=== PATIENT | female | born 1980 | race Asian ===

== ENCOUNTER 2017-12-06 11:54 | Inpatient (IN) | payer MEDICAID, OTHER, SELFPAY ==
[2017-12-06 21:35] VITALS: BMI 27.7
[2017-12-06] MEDS ORDERED: NS / Oxytocin 40 units/1000ml 1,000 ML IV PRN (22:11)
[2017-12-06] MEDS ORDERED: Lidocaine 1% (PF) 30 ML VIAL SC PRN (22:11)
[2017-12-06] MEDS ORDERED: Promethazine HCl 25 MG/ML VIAL IM PRN (22:11)
[2017-12-06] MEDS ORDERED: Ondansetron HCl/PF 4 MG/2 ML Vial IVP PRN (22:11)
[2017-12-06] MEDS ORDERED: Carboprost 250 MCG/ML AMP IM PRN (22:11)
[2017-12-06] MEDS ORDERED: Misoprostol 200 MCG TAB PR PRN (22:11)
[2017-12-06] MEDS ORDERED: Methylergonovine 0.2 MG/ML VIAL IM PRN (22:11)
[2017-12-06] MEDS ORDERED: Ibuprofen 800 MG TAB PO PRN (22:11)
[2017-12-06] MEDS ORDERED: Acetaminophen 500 MG TAB PO PRN (22:11)
[2017-12-06] MEDS ORDERED: NS w/ Oxytocin 10 units 500 ML IV SCH (22:15)
[2017-12-06 22:25] LABS: Hemoglobin 12.5 g/dL (12.0-16.0); Mean Corpuscular Hemoglobin 26.3 pg (27.0-31.0); Mean Corpuscular Volume 77.4 fL (78.0-98.0); Mean Platelet Volume 8.4 fL (7.4-10.4); Platelet Count 227 thou/uL (130-400); RBC Distribution Width 15.4 % (11.5-14.5); Red Blood Cell (RBC) Count 4.77 mill/uL (4.20-5.40)
--- NOTE | 2017-12-06 22:36 | PDOC.LDHP ---
Labor and Delivery H&P Chief complaint: contractions, scheduled induction HPI: Pt is a Female presenting for induction at 41 weeks. She is reporting some feelings of contractions. + movement at this time. Denies any discharge/LOF, chest pain, headaches or changes in vision. Current gestational age (weeks): 41 Due date: 11/29/17 Grav: 5 Para: 1 OB History Details: SABx3 DCx1 Current complications: other (anemia, AMA) Abnormal US findings: No Past Medical History: none Current medications: pre-tmaica vitamins, iron Previous surgical history: none Allergies/Adverse Reactions: Allergies Allergy/AdvReac Type Severity Reaction Status Date / Time No Known Allergies Allergy Verified 12/06/17 21:37 Social history: none - Physical Exam Vital signs reviewed and normal: yes General: NAD Heart: RRR Lungs: CTAB Abdomen: gravid Extremeties: no edema FHT: variability present (baseline 150, accelerationsx1, no decels) [place] contractions every: 10 mins - Vaginal Exam cm dilated: 0 (Cl/Th/Hi) - OB Labs Blood type: O RH: positive Antibody Screen: negative HIV: negative RPR: negative HEPSAg: negative GBS: negative Urine drug screen: not done Rubella: immune - Assessment Induction of labor post term - Plan Plan: admit to L&D (cervix is currently unfavorable for pitocin. Will administer cytotec 25 mcg. Continue to monitor, will begin pitocin when cervix becomes favorable. clear liquid diet.), cervical ripening, labor augmentation if indicated
[2017-12-06] MEDS: Misoprostol 100 MCG TAB VAG SCH (22:54)
[2017-12-06] MEDS: Lactated Ringer's 1,000 ML IV SCH (22:54)
[2017-12-06 23:06] LABS: HBSAg Index 0.15 S/CO (0-0.99); Hep B Surf Ag Non-Reactive S/CO (NonReactive); Syphilis Antibody Nonreactive (Nonreactive); Syphilis Antibody Index 0.06 S/CO (<1.00 Non-Reactive)
[2017-12-07] MEDS: Misoprostol 100 MCG TAB VAG SCH ×5 (03:16→19:31)
[2017-12-07] MEDS: Lactated Ringer's 1,000 ML IV SCH ×2 (05:01→13:03)
--- NOTE | 2017-12-07 06:11 | PDOC.LDPN ---
Labor & Delivery Progress Note - Subjective Subjective: comfortable, painful contractions, no concerns, other (patient complains of mild headache, denies vision changes) - Objective Vital signs reviewed and normal: yes General: NAD, resting, breathing through contractions (pain with contractions) Uterine fundus: non tender SVE: /-1 FHT: category 1 (120/mod/+accels x2, no decels), variable decelerations [place] contractions every: 4-5 minutes Plan: continue plan of care -: 39 at 40.0 wks by 15.3wk sono 1. Post term , sIUP, Elective IOL -SVE: /1 @0800 -Patient expressed desire to eat but discussed with patient that since she is progressing we will keep NPO; pt. agreed with plan -FHT: Category 1, mod, +accels, CTX 4-5min -Plan: Will increase pitocin to 4 units to augment labor and monitor 2. AMA -Proceeding with elective IOL <Adelaide Fairchild - Last Filed: 12/07/17 10:02> Attending Addendum - Attending Addendum Date/Time: 12/07/17 1028 I personally evaluated the patient and discussed the management with Dr. Fairchild I agree with the History, Examination, Assessment and Plan documented above with any addition or exceptions noted below. <Rashaad Espinoza - Last Filed: 12/07/17 10:28>
[2017-12-07] MEDS ORDERED: Fentanyl 100 MCG/2 ML VIAL SLOW IVP PRN (09:29)
[2017-12-07] MEDS ORDERED: Butorphanol Tartrate 1 MG/ML VIAL SLOW IVP SCH (09:30)
--- NOTE | 2017-12-07 10:07 | PDOC.LDPN ---
Labor & Delivery Progress Note - Subjective Subjective: painful contractions - Objective Vital signs reviewed and normal: yes Uterine fundus: non tender Dilation: 6 Effacement: 75% Station: -1 FHT: category 1 (130/mod/+accels/isolated variable), variable decelerations [place] contractions every: 3-4min -: 39 at 40.0 wks by 15.3wk sono 1. Post term , sIUP, Elective IOL -SVE: 6/75/-1 -FHT: Category 1, mod, +accels, CTX 3-4min, isolated variable -Pain control: Stadol x1 -Plan: Patient is progress well. We will continue to augment labor (pitocin inc. to 6 units) and monitor patient and baby 2. AMA -Proceeding with elective IOL We had a discussion with the patient, using the language line, to discuss all her pain management options: short acting vs. epidural. Patient declined epidural and instead opted for stadol/fentanyl but was made aware that she may change her mind to receive an epidural at any point. Plan was discussed with Dr. Espinoza
--- NOTE | 2017-12-07 11:32 | PDOC.EVN ---
Event Note - Event Note Event Note: SROM 11:17 AM, Clear fluid Cervical check: at 11:17 by nurse
--- NOTE | 2017-12-07 12:22 | PDOC.LDPN ---
Labor & Delivery Progress Note - Subjective Subjective: painful contractions - Objective Dilation: 6 Effacement: 75% (80) Station: 0 FHT: category 1 (120/mod/+accels, +early decels) Plan: continue plan of care -: 1. Inductive IOL, postdates -Continue monitoring -Continue active management -Pain control with stadol if patient requests (stadol x1 currently) <Adelaide Fairchild - Last Filed: 12/07/17 12:20> Attending Addendum - Attending Addendum Date/Time: 12/07/17 1600 I personally evaluated the patient and discussed the management with Dr. Fairchild I agree with the History, Examination, Assessment and Plan documented above with any addition or exceptions noted below. <Rashaad Espinoza - Last Filed: 12/07/17 16:00>
[2017-12-07] MEDS ORDERED: NS / Oxytocin 40 units/1000ml 0 ML ONE (13:33)
[2017-12-07] MEDS ORDERED: Lidocaine 1% (PF) 30 ML VIAL ONE (13:33)
[2017-12-07] MEDS ORDERED: NS / Oxytocin 40 units/1000ml 1,000 ML ONE (13:34)
--- NOTE | 2017-12-07 14:35 | PDOC.OPDEL ---
OB Operative/Delivery Note Delivery Dr/Surgeon: Adelaide Martínez Kristen Matthewson Pre-Delivery Diagnosis: active labor Procedure/Post Delivery Dx: spontaneous vaginal delivery Weeks gestation: 41 (0) Anesthesia: local - Additional Findings/Plan Placenta delivered: spontaneous Repaired Obstetrical Laceration: 2nd degree (2nd degree laceration with minimal bleeding) Compilations/Other Findings: Vaginal Delivery Dictation Guideline Delivering Physician: Megha Christiansen Attending: Dr. Rashaad Espinoza Procedure: Spontaneous Vaginal Delivery Anesthesia: Local 1% lidocaine for Repair EBL: 462ml Pre-op Diagnosis: 1. Postdates intrauterine in labor 2. Hx of: AMA, D&C, SGA infant Post-op Diagnosis: 1. Post-dates intrauterine , delivered 2. same as above Indications: A 37y/o female presents to L&D for induction due to post- dates ) Delivery Note: This is 37yo F @ 40.0 wks who delivered a viable F infant at 1348. Following an uneventful antepartum course, a vigorous F was delivered over an intact perineum in the occipitoanterior position. Anterior Shoulder and then remainder of the body delivered. No nuchal cord. The mouth and nares were bulb suctioned. Cord clamped and cut and cord blood collected. Placenta delivered intact with a 3 vessel cord noted. Fundal massage was performed and the fundus was firm. The cervix and vagina were inspected and a 2nd degree laceration was noted and repaired with 3-0 vicryl in the usual fashion with good approximation and a local anesthetic 1% lidocaine was injected at site. Infant went to nursery in good condition for routine care. Apgars were 8/9 at 1 & 5 minutes, respectively. Patient tolerated delivery well and went to after routine recovery/care. Post delivery plan: routine recovery <Adelaide Fairchild - Last Filed: 12/07/17 16:07> Attending Addendum - Attending Addendum Date/Time: 12/07/17 1631 I personally evaluated the patient and discussed the management with Dr. Fairchild I agree with the History, Examination, Assessment and Plan documented above with any addition or exceptions noted below. Nice delivery healthy female with APGARS listed above. Correction to above - there was a small second degree midline laceration. Rectal sphincter intact. Repair by Dr. Fairchild with excellent cosmetic results and hemostasis. <Rashaad Espinoza - Last Filed: 12/07/17 16:36>
[2017-12-07] MEDS ORDERED: Benzocaine/Menthol 20-0.5% 60 ML CAN TOP PRN (18:48)
[2017-12-07] MEDS ORDERED: Bisacodyl 10 MG SUPP PR PRN (18:48)
[2017-12-07] MEDS ORDERED: NS / Oxytocin 40 units/1000ml 1,000 ML IV SCH (18:48)
[2017-12-07] MEDS ORDERED: HYDROcodone/Acetaminophen 5/325 mg Tablet PO PRN ×2 (18:48)
[2017-12-07] MEDS ORDERED: Lanolin Ointment 7 GM TUBE TOP PRN (18:48)
[2017-12-07] MEDS ORDERED: Adacel (T-DAP) 0.5 ML VIAL IM ONE (18:48)
[2017-12-07] MEDS: Ibuprofen 800 MG TAB PO SCH (22:58)
[2017-12-08] MEDS: Ferrous Sulfate 325 MG TAB PO SCH ×2 (03:49→07:58)
--- NOTE | 2017-12-08 05:31 | PDOC.PP ---
Post Progress Note Post Day #: 1 Subjective: NAEO. Reports mild pain at laceration area but quantifies it as minimal. Didn't get too much sleep last night because baby was in room with her overnight. No other complaints. PO intake tolerated: yes Flatus: yes Ambulation: yes Vital Signs (12 hours) Temp Pulse Resp BP 12/08/17 00:00 98.1 F 75 16 112/61 12/07/17 20:00 98.1 F 76 16 102/55 L 12/07/17 18:00 98.3 F 80 20 110/68 Weight Weight 64.41 kg - Physical Examination General: NAD Cardiovascular: RRR Respiratory: clear to auscultation bilaterally, non-labored breathing Abdominal: + bowel sounds, lochia, no distention Deviation from normal: perineal laceration intact, approximating well, minimal bleeding Neurological: no gross focal deficits Psychiatric: A&Ox3, normal affect Result Diagrams: 12/08/17 04:59 Additional Labs: Post Labs Blood Type O POSITIVE 12/06/17 21:45 Hep Bs Antigen Non-Reactive S/CO (NonReactive) 12/06/17 21:45 - Assessment/Plan 27 yo now PPD #1 who underwent over 2nd degree perineal lacerationw tih repair on 12/07 at 1348. 1. S/P delivery with 2nd degree perineal laceration -Able to ambulate, good po intake, , minimal lochia overnight, mildly tender to touch, non-erythematous, no purulent drainage, urinating, BM 2. History of maternal anemia: -Drop in H/H: 12.5 -> 10; most likely 2/2 EBL of ~426 -Asymptomatic and clinically stable -Currently on ferrous sulfate -Will recommend to continue home regimen on discharge 3. Leukocytosis 2/2 normal stress reaction -Afebrile, most likely 2/2 to stress reaction from Dispo: Patient is doing well, will discharge today at 24 hrs. Advised to follow up with PCP, Dr. Rey, in two weeks. Discussed with Dr. Espinoza <Adelaide Fairchild - Last Filed: 12/08/17 11:04> Vital Signs (12 hours) Temp Pulse Resp BP 12/08/17 16:21 97.7 F 66 20 12/08/17 12:43 97.7 F 66 20 12/08/17 12:00 97.7 F 66 20 118/62 12/08/17 08:25 97.7 F 70 20 12/08/17 08:16 97.7 F 70 20 107/69 12/08/17 05:45 97.9 F 65 16 121/70 Weight Weight 64.41 kg Result Diagrams: 12/08/17 04:59 Additional Labs: Post Labs Blood Type O POSITIVE 12/06/17 21:45 Hep Bs Antigen Non-Reactive S/CO (NonReactive) 12/06/17 21:45 <Rashaad Espinoza - Chance Filed: 12/08/17 16:29> Attending Addendum - Attending Addendum Date/Time: 12/08/17 [id number] I personally evaluated the patient and discussed the management with Dr. Wills I agree with the History, Examination, Assessment and Plan documented above with any addition or exceptions noted below. <Rashaad Espinoza Filed: 12/08/17 16:29>
[2017-12-08] MEDS: Ibuprofen 800 MG TAB PO SCH ×2 (05:45→14:27)
[2017-12-08 06:04] LABS: Hemoglobin 10.5 g/dL (12.0-16.0); Mean Corpuscular HGB CONC 33.1 g/dL (32.0-36.0); Mean Corpuscular Hemoglobin 26.1 pg (27.0-31.0); Mean Corpuscular Volume 78.7 fL (78.0-98.0); Mean Platelet Volume 8.2 fL (7.4-10.4); Platelet Count 198 thou/uL (130-400); RBC Distribution Width 15.2 % (11.5-14.5); Red Blood Cell (RBC) Count 4.04 mill/uL (4.20-5.40); White Blood Cell (WBC) Count 15.7 thou/uL (4.8-10.8)
[2017-12-08 08:17] VITALS: TEMP 97.7
[2017-12-08] MEDS ORDERED: Prenatal Vitamin 1 TAB PO SCH (09:00)
[2017-12-08 12:01] VITALS: BP 118/62
== END 2017-12-08 17:59 | disposition home or self-care (01) | DRG 775 ==
LOC: L&D 21:02 → 3SW 12-07 17:20
PROVIDERS: ADMIT Emergency Medicine; ATTEND Emergency Medicine
PROC: 3E0P7VZ Introduction of Hormone into Female Reproductive, Via Natural or Artificial Opening (ICD-10-PCS; 2017-12-06)
PROC: 10E0XZZ Delivery of Products of Conception, External Approach (ICD-10-PCS; principal; 2017-12-07)
PROC: 0KQM0ZZ Repair Perineum Muscle, Open Approach (ICD-10-PCS; 2017-12-07)
DX: O48.0 Post-term pregnancy (principal); O99.02 Anemia complicating childbirth; D64.9 Anemia, unspecified; O70.1 Second degree perineal laceration during delivery; Z3A.41 41 weeks gestation of pregnancy; Z37.0 Single live birth
CPT/HCPCS: 36415; 76815; 85027; 86780; 86850; 86900; 86901; 87340; J0595; J2001; J3010

== ENCOUNTER 2022-01-27 11:57 | Inpatient (IN) | payer BC, MEDICAID ==
[2022-01-27 13:01] LABS: BHCG - Serum Negative (NEGATIVE); Pregs Control Background? CLEAR/WHITE (CLR/WHITE); Pregs Control Bar Appear? YES (CONTROL BAR)
[2022-01-27 13:10] LABS: Hemoglobin 11.8 g/dL (12.0-16.0); Mean Corpuscular HGB CONC 32.4 g/dL (32.0-36.0); Mean Corpuscular Hemoglobin 26.3 pg (27.0-31.0); Mean Corpuscular Volume 81.2 fL (78.0-98.0); Platelet Count Less than 2 thou/uL (130-400); RBC Distribution Width 12.2 % (11.5-14.5); Red Blood Cell (RBC) Count 4.48 mill/uL (4.20-5.40); Reflex for Review?? YES; White Blood Cell (WBC) Count 6.6 thou/uL (4.8-10.8)
[2022-01-27 13:12] LABS: #Eosinphils 0.1 thou/uL (0.0-0.7); #Lymphocytes 2.7 thou/uL (1.20-3.40); #Monocytes 0.5 thou/uL (0.11-0.59); #Neutrophils 3.2 thou/uL (1.40-6.50); %Basophils 0.3 % (0.0-1.0); %Eosinophils 1.4 % (0.0-10.0); %Lymphocytes 41.7 % (21.0-51.0); %Monocytes 7.4 % (0.0-10.0); %Neutrophils 49.2 % (42.0-75.0); MDiff Complete? YES; Platelet Morphology Comment Appears Decreased; Polychromasia SLIGHT = 2-3 cells (100X) (0-2/hpf)
[2022-01-27 14:04] LABS: ALT (SGPT) 14 U/L (8-55); AST (SGOT) 18 U/L (5-34); Albumin 3.9 g/dL (3.5-5.0); Alkaline Phosphatase 64 U/L (40-110); Anion Gap 11 mmol/L (10-20); BUN (Urea Nitrogen) 11 mg/dL (7.0-18.7); Bilirubin, Total 0.3 mg/dL (0.2-1.2); Calc. Creatinine Clearance 0 mL/min (70-130); Calcium 8.7 mg/dL (7.8-10.44); Carbon Dioxide 24 mmol/L (22-29); Chloride 108 mmol/L (98-107); Estimated GFR 108; Globulin 3.1 g/dL (2.4-3.5); Glucose 93 mg/dL (70-105); Sodium 139 mmol/L (136-145)
[2022-01-27 15:27] LABS: Bacteria/HPF None Seen HPF (None Seen); Bilirubin Negative (Negative); Blood, Urine 3+ (Negative); Glucose, Urine (Dipstick) Normal (Negative); Ketone, Urine Trace mg/dL (Negative); Leukocyte 75 Leu/uL (Negative); Nitrite Negative (Negative); Protein, Urine (Dipstick) 30 mg/dL (Neg-Trace); RBC/HPF Greater than 50 HPF (0-3); Specific Gravity, Urine 1.009 (1.002-1.036); Urobilinogen Normal mg/dL (Less than 2); WBC/HPF 0-3 HPF (0-3)
[2022-01-27 15:29] LABS: Clarity Cloudy (Clear)
[2022-01-27] MEDS ORDERED: Dexamethasone 10 MG/ML VIAL ONE (16:02)
[2022-01-27] MEDS ORDERED: Pantoprazole 40 MG VIAL ONE (16:03)
[2022-01-27 16:08] LABS: Hemoglobin 11.3 g/dL (12.0-16.0); Mean Corpuscular HGB CONC 31.5 g/dL (32.0-36.0); Mean Corpuscular Hemoglobin 25.5 pg (27.0-31.0); Mean Corpuscular Volume 81.1 fL (78.0-98.0); Mean Platelet Volume 15.2 fL (7.4-10.4); Platelet Count Less than 2 thou/uL (130-400); RBC Distribution Width 12.1 % (11.5-14.5); Red Blood Cell (RBC) Count 4.45 mill/uL (4.20-5.40); White Blood Cell (WBC) Count 7.5 thou/uL (4.8-10.8)
[2022-01-27 17:31] LABS: SARS-CoV-2 NAA Rapid Test Not Detected (NotDetected)
[2022-01-27 19:58] VITALS: BMI 26.0
[2022-01-27] MEDS ORDERED: OCTAGAM 10% (10 GM/100 ML VIAL) IVPB SCH (20:25)
[2022-01-27] MEDS: ADMIXTURE FEE IVPB SCH (21:34)
[2022-01-27] MEDS: IMMUNE GLOBULIN IVPB SCH (21:34)
[2022-01-28 00:36] LABS: Reticulocyte Count 2.3 % (0.5-1.5)
[2022-01-28 00:37] LABS: Hemoglobin 11.4 g/dL (12.0-16.0); Mean Corpuscular HGB CONC 32.3 g/dL (32.0-36.0); Mean Corpuscular Hemoglobin 26.2 pg (27.0-31.0); Mean Corpuscular Volume 80.9 fL (78.0-98.0); Red Blood Cell (RBC) Count 4.36 mill/uL (4.20-5.40); White Blood Cell (WBC) Count 4.6 thou/uL (4.8-10.8)
[2022-01-28 00:43] LABS: Fibrinogen 320 mg/dL (253-463)
[2022-01-28 00:44] LABS: PTT 34.1 sec (22.9-36.1); Prothrombin Time 13.5 sec (12.0-14.7)
[2022-01-28 00:45] LABS: D-Dimer Test 0.76 *mcg/mL (0.27-0.43)
[2022-01-28 00:49] LABS: #Lymphocytes 0.5 thou/uL (1.20-3.40); #Monocytes 0.1 thou/uL (0.11-0.59); %Basophils 0.1 % (0.0-1.0); %Eosinophils 0.7 % (0.0-10.0); %Lymphocytes 10.6 % (21.0-51.0); %Neutrophils 87.7 % (42.0-75.0); Mean Platelet Volume 11.3 fL (7.4-10.4); Platelet Count 17 thou/uL (130-400); Platelet Morphology Comment Appears Decreased; RBC Morphology Normal
[2022-01-28 00:51] LABS: Platelet Count 17 thou/uL (130-400)
[2022-01-28 01:14] LABS: HBCM Index 0.11 S/CO (0-0.79); HBSAg Index 0.32 S/CO (0-0.99); HIV (1/2) Antibody/Antigen Non-Reactive (NonReactive); Hep A IgM AB Non-Reactive (NonReactive); Hep A IgM S/CO 0.13 S/CO (0-0.79); Hep B Surf Ag Non-Reactive S/CO (NonReactive); Hep C IgG Ab Non-Reactive (NonReactive); Hep C Index 0.42 S/CO (0-0.79); Hepatitis B Core IgM Abs Non-Reactive (NonReactive)
[2022-01-28] MEDS ORDERED: Dexamethasone 10 MG/ML VIAL SLOW IVP SCH (09:00)
[2022-01-28] MEDS ORDERED: Pantoprazole 40 MG VIAL IVP SCH (09:00)
[2022-01-28 10:03] LABS: ALT (SGPT) 16 U/L (8-55); AST (SGOT) 17 U/L (5-34); Albumin 3.8 g/dL (3.5-5.0); Alkaline Phosphatase 64 U/L (40-110); Anion Gap 14 mmol/L (10-20); BUN (Urea Nitrogen) 14 mg/dL (7.0-18.7); Bilirubin, Total 0.3 mg/dL (0.2-1.2); Calc. Creatinine Clearance 72 mL/min (70-130); Carbon Dioxide 19 mmol/L (22-29); Chloride 109 mmol/L (98-107); Estimated GFR 73; Globulin 5.4 g/dL (2.4-3.5); Glucose 164 mg/dL (70-105); Potassium 3.8 mmol/L (3.5-5.1); Protein, Total 9.2 g/dL (6.0-8.3); Sodium 138 mmol/L (136-145)
[2022-01-28 10:04] LABS: Hemoglobin 11.2 g/dL (12.0-16.0); Mean Corpuscular HGB CONC 31.9 g/dL (32.0-36.0); Mean Corpuscular Hemoglobin 25.6 pg (27.0-31.0); Mean Corpuscular Volume 80.4 fL (78.0-98.0); Mean Platelet Volume 15.1 fL (7.4-10.4); Platelet Count 13 thou/uL (130-400); RBC Distribution Width 12.1 % (11.5-14.5); Red Blood Cell (RBC) Count 4.36 mill/uL (4.20-5.40); White Blood Cell (WBC) Count 16.2 thou/uL (4.8-10.8)
[2022-01-28 10:44] LABS: #Lymphocytes 0.9 thou/uL (1.20-3.40); #Monocytes 0.2 thou/uL (0.11-0.59); #Neutrophils 15.1 thou/uL (1.40-6.50); %Eosinophils 0.2 % (0.0-10.0); %Lymphocytes 5.6 % (21.0-51.0); %Monocytes 1.1 % (0.0-10.0); %Neutrophils 93.2 % (42.0-75.0); Band 15 % (5-11); Lymphocytes 3 % (21-51); MDiff Complete? YES; Monocytes 1 % (0-10); Myelocyte 1 % (0-0); Neutrophil 80 % (42-75); Platelet Morphology Comment Appears Decreased; Polychromasia SLIGHT = 2-3 cells (100X) (0-2/hpf)
[2022-01-28] MEDS: IMMUNE GLOBULIN IVPB SCH (20:57)
[2022-01-28] MEDS: ADMIXTURE FEE IVPB SCH (20:57)
[2022-01-29 07:16] LABS: Hemoglobin 10.4 g/dL (12.0-16.0); Mean Corpuscular HGB CONC 33.2 g/dL (32.0-36.0); Mean Corpuscular Volume 81.3 fL (78.0-98.0); Mean Platelet Volume 11.5 fL (7.4-10.4); Platelet Count 42 thou/uL (130-400); RBC Distribution Width 12.2 % (11.5-14.5); Red Blood Cell (RBC) Count 3.85 mill/uL (4.20-5.40); White Blood Cell (WBC) Count 21.8 thou/uL (4.8-10.8)
[2022-01-29 07:39] LABS: ALT (SGPT) 13 U/L (8-55); AST (SGOT) 14 U/L (5-34); Albumin 3.3 g/dL (3.5-5.0); Alkaline Phosphatase 55 U/L (40-110); Anion Gap 9 mmol/L (10-20); BUN (Urea Nitrogen) 18 mg/dL (7.0-18.7); Bilirubin, Total Less than 0.2 mg/dL (0.2-1.2); Calc. Creatinine Clearance 83 mL/min (70-130); Calcium 8.7 mg/dL (7.8-10.44); Carbon Dioxide 23 mmol/L (22-29); Chloride 109 mmol/L (98-107); Estimated GFR 86; Globulin 6.4 g/dL (2.4-3.5); Glucose 136 mg/dL (70-105); Potassium 3.9 mmol/L (3.5-5.1); Protein, Total 9.7 g/dL (6.0-8.3); Sodium 137 mmol/L (136-145)
[2022-01-29] MEDS ORDERED: Dexamethasone 4 MG TAB PO SCH (08:00)
[2022-01-29] MEDS ORDERED: OCTAGAM 10% (10 GM/100 ML VIAL) IVPB SCH (09:30)
[2022-01-29 09:46] LABS: Band 16 % (5-11); Lymphocytes 8 % (21-51); MDiff Complete? YES; Metamyelocyte 1 % (0-0); Monocytes 9 % (0-10); Myelocyte 1 % (0-0); Neutrophil 65 % (42-75); Platelet Morphology Comment Appears Decreased; Polychromasia SLIGHT = 2-3 cells (100X) (0-2/hpf); Rouleaux Formation SLIGHT = 1-5 cells (100X) (None Seen)
[2022-01-29] MEDS ORDERED: ADMIXTURE FEE IVPB SCH (12:00)
[2022-01-29] MEDS ORDERED: IMMUNE GLOBULIN IVPB SCH (12:00)
[2022-01-29 13:31] VITALS: BP 137/71; TEMP 98.1
== END 2022-01-29 16:00 | disposition home or self-care (01) | DRG 813 ==
LOC: ERS 11:57 → T4-B 15:59
PROVIDERS: ADMIT Family Medicine; ATTEND Family Medicine
PROC: 6A550Z2 Pheresis of Platelets, Single (ICD-10-PCS; principal; 2022-01-27)
PROC: 30233S1 Transfusion of Nonautologous Globulin into Peripheral Vein, Percutaneous Approach (ICD-10-PCS; 2022-01-27)
DX: D69.3 Immune thrombocytopenic purpura (principal); Z20.822 Contact with and (suspected) exposure to COVID-19; N93.8 Other specified abnormal uterine and vaginal bleeding
CPT/HCPCS: 36415; 36430; 80053; 80074; 81003; 81015; 83010; 83615; 84703; 85025; 85046; 85049; 85060; 85300; 85362; 85379; 85384; 85610; 85730; 86850; 86880; 86900; 86901; 87389; 96374; 96375; C9113; J1100; J1568; J8540; P9035; U0002